=== PATIENT | female | born 1975 | race Caucasian/White ===

== ENCOUNTER 2017-07-07 22:08 | Emergency (ER) | payer OTHER ==
[2011-12-14 10:42] VITALS: BMI 21.8
[2017-07-07 22:27] LABS: BASOPHILS 0.2 % (0-2); EOSINOPHILS 2.3 % (0-7); HEMATOCRIT 38.7 % (36.0-48.0); HEMOGLOBIN 12.7 g/dL (12-16); IMMATURE GRANULOCYTES 2.3 % (0-5); LYMPHOCYTES 32.6 % (15-50); MCH 32.1 pg (26.0-34.0); MCHC 32.8 g/dL (31.0-37.0); MCV 97.7 fL (80.0-100.0); MEAN PLATELET VOLUME 9.2 fL (7.4-10.4); MONOCYTES 3.7 % (2-11); NEUTROPHILS 58.9 % (40-80); RBC 3.96 10x6/uL (4.00-5.40); RDW 12.2 % (11.5-14.5); WBC 11.2 10x3/uL (4.8-10.8)
[2017-07-07 22:28] LABS: PLATELET COUNT 200 10x3/uL (130-400)
[2017-07-07 22:42] LABS: ALBUMIN 2.5 g/dL (3.4-5.0); ALKALINE PHOSPHATASE 56 U/L (46-116); ALT (SGPT) 37 U/L (10-68); CALC OSMOLALITY 296 mosm/kg (275-300); CALCIUM 8.1 mg/dL (8.5-10.1); CHLORIDE - SERUM 108 mmol/L (98-107); CREATININE - SERUM 1.1 mg/dL (0.6-1.3); POTASSIUM - SERUM 3.5 mmol/L (3.5-5.1); SODIUM 144 mmol/L (136-145); UREA NITROGEN 17 mg/dL (7-18); eGFR NON AFRICAN AMERICAN 57 mL/min (90-120)
[2017-07-07 22:43] LABS: APTT 51.7 SECONDS (22.8-39.4); INR 1.65 (0.85-1.17)
[2017-07-07 22:50] LABS: GLUCOSE 246 mg/dL (74-106)
[2017-07-07 22:53] LABS: CKMB 1.7 U/L (0.0-3.6); CREATINE KINASE 150 UL (21-215); MAGNESIUM - SERUM 2.3 mg/dL (1.8-2.4); TROPONIN-I < 0.017 ng/mL (0.000-0.060)
[2017-07-08 00:27] LABS: UDS - AMPHET POSITIVE QUAL (NEGATIVE); UDS - BARB NEGATIVE QUAL (NEGATIVE); UDS - BENZO NEGATIVE QUAL (NEGATIVE); UDS - COCAINE NEGATIVE QUAL (NEGATIVE); UDS - OPIATE POSITIVE QUAL (NEGATIVE); UDS - PCP NEGATIVE QUAL (NEGATIVE); UDS - THC NEGATIVE QUAL (NEGATIVE)
== END 2017-07-08 01:30 | disposition home or self-care (01) ==
LOC: D.ER 22:08
PROVIDERS: Emergency Medicine
DX: R40.20 Unspecified coma (principal); E87.2 Acidosis; I95.9 Hypotension, unspecified; F17.200 Nicotine dependence, unspecified, uncomplicated